=== PATIENT | female | born 1945 | race Caucasian/White ===

== ENCOUNTER 2018-07-31 10:09 | Emergency (ER) | payer MEDICARE, BC ==
--- NOTE | 2018-07-31 10:17 | ED ---
Head Injury - HPI Summary HPI Summary: A 72 y/o F brought in by ambulance presents to ED with sudden-onset small lac to crown of head onset shortly [employer]PRESENT[employer]IVE. Lac is not actively bleeding at bedside. Pt was getting out of her car when she slipped on a pot hole and fell backwards. While falling, she hit her head against the hubcap of a car tire parked beside her. Associated sx: head pain, neck stiffness, RUE abrasion by elbow. Denies CP , SOB, RUE pain, LOC, dizziness, recent falls. Pt states she is healthy otherwise. She takes daily Lipitor which she took this AM. NKDA. Non-smoker. No ETOH. No recreational drugs. SHx: cholecystectomy. Last tetanus: 04/18/2012. PCP is Dr. Cavanaugh at [facility]. Pt ate breakfast at 0700. She states her BP is generally on the low side. Vital signs while in room: HR 56 bpm, BP 160/77. Home Medications Medication Instructions Recorded Confirmed Type Atorvastatin* [Lipitor*] 5 mg PO DAILY 12/21/12 12/23/12 History - History Of Current Complaint Stated Complaint: FALL Hx Obtained From: Patient Mechanism Of Injury: Fall From A Standing Position Onset/Duration: Started Minutes Ago, Traumatic - fall, Still Present Onset of Pain: Immediate, Prior to Arrival Severity Currently: Moderate Severity Initially: Moderate Pain Intensity: 5 Pain Scale Used: 0-10 Numeric Location of Head Injury: Other: - lac at crown Location: Discrete At: - lac at crown Character: Aching Aggravating Factor(s): Other: - Nothing Alleviating Factor(s): Other: - Nothing Associated Signs And Symptoms: Neck Pain - stiffness, Other: - Pos: head pain, RUE abrasion by elbow. Neg: CP, SOB, RUE pain, LOC, dizziness, recent falls. - Allergies/Home Medications Allergies/Adverse Reactions: Allergies Allergy/AdvReac Type Severity Reaction Status Date / Time No Known Allergies Allergy Verified 12/23/12 15:49 PMH/Surg Hx/FS Hx/Imm Hx Previously Healthy: Yes Endocrine/Hematology History: Denies: Hx Diabetes Cardiovascular History: Denies: Hx Hypertension, Hx Pacemaker/ICD Respiratory History: Denies: Hx Asthma GI History: Reports: Hx Gastroesophageal Reflux Disease History: Denies: Hx Renal Disease Sensory History: Reports: Hx Vision Problem Denies: Hx Hearing Aid Opthamlomology History: Reports: Hx Vision Problem Neurological History: Reports: Hx Headaches - occassional- mild to moderate in intensity Psychiatric History: Denies: Hx Panic Disorder - Surgical History Surgery Procedure, Year, and Place: GB, TONSILS, LUMPECTOMY, BILIARY STENT - Family History Known Family History: Positive: Cardiac Disease - father Family History: mother: [place]. - Social History Occupation: Retired Lives: Alone Alcohol Use: None Hx Substance Use: No Substance Use Type: Reports: None Hx Tobacco Use: No Smoking Status (MU): Never Smoked Tobacco Review of Systems Negative: Fever Negative: Chest Pain Negative: Shortness Of Breath Musculoskeletal: Other - neg: RUE pain Positive: Other - pos: neck stiffness Skin: Other - abrasion to RUE elbow Positive: Other - lac to crown of head Neurological: Other - neg: dizziness Positive: Headache - head pain. Negative: Syncope - LOC All Other Systems Reviewed And Are Negative: Yes Physical Exam - Summary Physical Exam Summary: Appearance: Well-appearing, moderate pain distress, well-nourished Skin: Warm, color reflects adequate perfusion, dry, superficial abrasion to R olecranon approx 3cm with surrounding purple ecchymosis Head: Lac on crown of head, bleeding controlled. Eyes: Conjunctiva clear, MATT, EOMI, no nystagmus ENT: Normal inspection Neck: Supple, no nodes, no JVD, no spinal tenderness Respiratory: Lungs clear, normal breath sounds, no respiratory distress Cardio: RRR, No murmur, pulses normal, brisk capillary refill Abdomen: Soft, nontender, no rebound, no guarding, no massess, non-distended Bowel sounds: Present Musculoskeletal: Strength Intact/ROM intact, no calf tenderness, no edema, no back or rib tenderness Psychological: Normal Neuro: Alert, muscle tone normal, no focal deficit, speech fluent and clear, facial symmetry Triage Information Reviewed: Yes Vital Signs Reviewed: Yes Re-Evaluation - Re-Evaluation 1 Re-Evaluation Time: 11:30 Change: Improved Comment: BP: 141/73. After IBP, DAS has decreased. Pt is ready to go home. Head Injury Course/Dx Course Of Treatment: Pt is a healthy 72 y/o F brought in by ambulance presenting after mechanical fall with small laceration to crown of head, controlled bleeding, mild neck stiffness and superficial abrasion to RUE elbow. Pt denies CP, SOB, RUE pain, LOC, dizziness, recent falls. Daily Lipitor which she took this AM. Not on blood thinners. Last tetanus: 04/18/2012. Allergies noted, high blood pressure noted. Pt medications reviewed this visit. - Diagnoses Provider Diagnoses: Scalp laceration, Head injury, Elevated blood pressure reading without diagnosis of hypertension Discharge - Sign-Out/Discharge Documenting (check all that apply): Patient Departure - DC - Discharge Plan Condition: Stable Disposition: HOME Patient Education Materials: Laceration (ED), Head Injury (ED) Referrals: Marcel Rendon MD [Primary Care Provider] - 2 Days Additional Instructions: You were given Ibuprofen 600mg at 10:45 this morning. Your blood pressure reading today was 160/77 which is HYPERTENSIVE. Follow-up with your primary care provider within 4 weeks for blood pressure readings and further evaluation. RETURN TO THE EMERGENCY DEPARTMENT FOR CHANGING OR WORSENING SYMPTOMS. - Attestation Statements Document Initiated by Scribe: Yes Documenting Scribe: Elle Rosenthal Provider For Whom Scribe is Documenting (Include Credential): Dr. Tita Saavedra MD Scribe Attestation: Annelise, Elle Rosenthal, scribed for Dr. Tita Saavedra MD on 07/31/18 at 1144.
[2018-07-31] MEDS ORDERED: Ibuprofen TAB* 600 MG PO ONE (10:24)
[2018-07-31 12:07] VITALS: BP 155/90
== END 2018-07-31 12:06 | disposition home or self-care (01) ==
LOC: ED 10:09
DX: S01.01XA Laceration without foreign body of scalp, initial encounter (principal); S09.90XA Unspecified injury of head, initial encounter; S50.311A Abrasion of right elbow, initial encounter; W01.0XXA Fall on same level from slipping, tripping and stumbling without subsequent striking against object, initial encounter; Y92.481 Parking lot as the place of occurrence of the external cause
CPT/HCPCS: 99281; A9270-GY

== ENCOUNTER 2019-06-04 09:02 | Day surgery (SDC) | payer MEDICARE, BC ==
[~2019-06-04 09:02] MED LIST: Buffered Lidocaine 1% SYRIN* 1 ML/SYRINGE INTRADERM ONE
[2019-06-04] MEDS ORDERED: Midazolam* 1 MG/ML 2 ML VIAL (2 MG) ONE (11:11)
--- NOTE | 2019-06-04 12:03 | OP ---
DATE OF OPERATION: 06/04/19 - [facility] DATE OF : 47 SURGEON: Huey Castro M.D. PREOPERATIVE DIAGNOSIS: Cataract, right eye. POSTOPERATIVE DIAGNOSIS: Cataract, right eye. OPERATIVE PROCEDURE: Extracapsular cataract extraction with intraocular lens implant, right eye. DESCRIPTION OF PROCEDURE: The patient was brought to the operating room after being given 1/2% Alcaine with epinephrine drops in the preoperative area. The eye was prepped and draped in the usual sterile fashion. Sterile drape and eyelid speculum were placed. Again, topical 1/2% Alcaine with epinephrine was given. A paracentesis incision was made at the 9 o'clock position with the No.75 blade. Clear cornea incision 2.2 x 2.2 mm was created at the 12 o'clock position starting at the anterior limbus using the 2.2 mm keratome. The anterior chamber was irrigated with 0.4 mL of 1% non-preservative intracameral lidocaine and filled with DisCoVisc. A capsulorrhexis was completed using the cystotome and the Utrata forceps. Hydrodissection was performed with balanced salt solution. The lens nucleus was removed with the Phacoemulsification handpiece without incident. Cortex was removed with the irrigation-aspiration handpiece. The capsular bag was re-inflated using DisCoVisc and an SN60WF 19.5 implant was inserted with the shooter. The irrigation-aspiration handpiece was used to remove all residual DisCoVisc. The eye was refilled with balanced salt solution and the wound checked and found to be watertight. Topical Maxitrol drops were given. [id number]/[facility] #: [id number] MTDD
[2019-06-04 12:13] VITALS: BP 139/69
[2019-06-04] MEDS ORDERED: Neomycin/Polymy/Dex OPTH.SUSP* MAXITROL 0.1% 5 ML ONE (12:23)
[2019-06-04] MEDS ORDERED: acetaZOLAMIDE TAB* 250 MG ONE (12:23)
[2019-06-04] MEDS ORDERED: Phenylephrine OPHTH SOL 2.5%* 2 ML ONE (12:23)
[2019-06-04] MEDS ORDERED: Povidone Iodine 5% OPTH* 30 ML BTL ONE (12:23)
[2019-06-04] MEDS ORDERED: Lidocaine 1% MPF ** 5 ML VIAL ONE (12:23)
[2019-06-04] MEDS ORDERED: Cyclopentolate 1% OPTH.SOL* 2 ML BTL ONE (12:23)
[2019-06-04] MEDS ORDERED: Ketorolac 0.5% OPHTH (NF) 0.5 % 5 ML BTL ONE (12:23)
[2019-06-04] MEDS ORDERED: Lidocaine 2% w/ EPI 1:200,000* 20 ML SDV VIAL ONE (12:23)
[2019-06-04] MEDS ORDERED: Proparacaine 0.5% OPHTH.SOL* 15 ML BTL ONE (12:23)
== END 2019-06-04 12:03 | disposition home or self-care (01) ==
LOC: OREAST 09:02
PROVIDERS: ATTEND Specialist
DX: H25.11 Age-related nuclear cataract, right eye (principal); H53.001 Unspecified amblyopia, right eye; H04.123 Dry eye syndrome of bilateral lacrimal glands; E78.00 Pure hypercholesterolemia, unspecified; M19.90 Unspecified osteoarthritis, unspecified site; K21.9 Gastro-esophageal reflux disease without esophagitis
CPT/HCPCS: A9270-GY; J2250; V2632

== ENCOUNTER 2019-06-11 10:18 | Day surgery (SDC) | payer MEDICARE, BC ==
[2019-06-11] MEDS ORDERED: Neomycin/Polymy/Dex OPTH.SUSP* MAXITROL 0.1% 5 ML ONE (10:37)
[2019-06-11] MEDS ORDERED: acetaZOLAMIDE TAB* 250 MG ONE (10:37)
[2019-06-11] MEDS ORDERED: Cyclopentolate 1% OPTH.SOL* 2 ML BTL ONE (10:37)
[2019-06-11] MEDS ORDERED: Povidone Iodine 5% OPTH* 30 ML BTL ONE (10:37)
[2019-06-11] MEDS ORDERED: Lidocaine 1% MPF ** 5 ML VIAL ONE (10:37)
[2019-06-11] MEDS ORDERED: Ketorolac 0.5% OPHTH (NF) 0.5 % 5 ML BTL ONE (10:37)
[2019-06-11] MEDS ORDERED: Lidocaine 2% w/ EPI 1:200,000* 20 ML SDV VIAL ONE (10:37)
[2019-06-11] MEDS ORDERED: Phenylephrine OPHTH SOL 2.5%* 2 ML ONE (10:37)
[2019-06-11] MEDS ORDERED: Proparacaine 0.5% OPHTH.SOL* 15 ML BTL ONE (10:38)
[2019-06-11] MEDS ORDERED: Midazolam* 1 MG/ML 2 ML VIAL (2 MG) ONE (12:55)
[2019-06-11 13:35] VITALS: BP 149/80
--- NOTE | 2019-06-11 22:04 | OP ---
DATE OF OPERATION: 06/11/19 - [facility] DATE OF : 47 SURGEON: Huey Castro M.D. PREOPERATIVE DIAGNOSIS: Cataract, left eye. POSTOPERATIVE DIAGNOSIS: Cataract, left eye. OPERATIVE PROCEDURE: Extracapsular cataract extraction with intraocular lens implant to left eye. DESCRIPTION OF PROCEDURE: The patient was brought to the operating room after being given 1/2% Alcaine with epinephrine drops in the preoperative area. The eye was prepped and draped in the usual sterile fashion. Sterile drape and eyelid speculum were placed. Again, topical 1/2% Alcaine with epinephrine was given. A paracentesis incision was made at the 3 o'clock position with the No.75 blade. Clear cornea incision 2.2 x 2.2 mm was created at the 6 o'clock position starting at the anterior limbus using the 2.2 mm keratome. The anterior chamber was irrigated with 0.4 mL of 1% non-preservative intracameral lidocaine and filled with DisCoVisc. A capsulorrhexis was completed using the cystotome and the Utrata forceps. Hydrodissection was performed with balanced salt solution. The lens nucleus was removed with the Phacoemulsification handpiece without incident. Cortex was removed with the irrigation-aspiration handpiece. The capsular bag was re-inflated using DisCoVisc and an SN60WF 19.5 implant was inserted with the shooter. The irrigation-aspiration handpiece was used to remove all residual DisCoVisc. The eye was refilled with balanced salt solution and the wound checked and found to be watertight. Topical Maxitrol drops were given. [id number]/[facility] #: [id number] MTDD
== END 2019-06-11 13:45 | disposition home or self-care (01) ==
LOC: OREAST 10:18
PROVIDERS: ATTEND Specialist
DX: H25.12 Age-related nuclear cataract, left eye (principal); H04.123 Dry eye syndrome of bilateral lacrimal glands; H53.001 Unspecified amblyopia, right eye; E78.2 Mixed hyperlipidemia; E78.00 Pure hypercholesterolemia, unspecified; M19.90 Unspecified osteoarthritis, unspecified site; K21.9 Gastro-esophageal reflux disease without esophagitis
CPT/HCPCS: A9270-GY; J2250; V2632